=== PATIENT | female | born 1965 | race Caucasian/White ===

== ENCOUNTER → 2021-03-24 | Outpatient (CLI) | payer OTHER ==
[~2021-03-24] MED LIST: AMOX-358 PO
--- NOTE | 2021-03-24 16:58 | Diagnostic Imaging Report ---
INDICATION: Left leg pain. Left leg venous Doppler study was performed in the routine fashion with color flow Doppler and waveform analysis. FINDINGS: The left common femoral vein, superficial femoral vein, popliteal vein and visualized portion of the posterior tibial vein show normal compressibility and venous flow patterns. There is normal augmentation. There is an incidental Deleon's cyst in the left popliteal fossa measuring 4.0 x 3.1 x 2.1 cm. IMPRESSION: No evidence of deep vein thrombosis of the major veins of the left leg. Deleon's cyst in left popliteal fossa. Dictated by: Dictated on workstation # [id number]
== END ==
LOC: RAD 16:11
PROVIDERS: ATTEND Nurse Practitioner Family
DX: M71.22 Synovial cyst of popliteal space [Baker], left knee (principal)

== ENCOUNTER 2021-06-30 16:48 | Emergency (ER) | payer OTHER ==
[~2021-06-30] VITALS: Ht 160 cm; Wt 68.0 kg
--- NOTE | 2021-06-30 20:01 | ED General ---
General Chief Complaint: General Problems/Pain Nursing Triage Note: SENT HERE FOR A CT BUT INSURANCE WOULD NOT PAY SO DR SENT HER HERE. STATES SHE HAS ABNORMAL LABS. Source of Information: Patient Exam Limitations: No Limitations (JUNE DIAZ APRN) History of Present Illness Date Seen by Provider: Jun 30, 2021 Time Seen by Provider: 19:59 Initial Comments To ER from Dr. Garcia swelling in her legs for clinic with reports of about 2 to 3 month. She had outpatient labs done at Dr. Jasso's clinic today showing normal TSH but an abnormal creatinine of 2.1, GFR of 26 and a BUN of 51. Calcium low at 7.6. Albumin low at 2. Hyperlipidemia with total cholesterol of 352. Normal CBC. She states that about 10 days ago before she really began feeling badly she had some systemic symptoms of illness general weakness nausea diarrhea. Her 2 days later was ill with similar symptoms. She has some abdominal pain and was referred here to the emergency room for further work-up. Timing/Duration: 1-2 Days Severity: Moderate Associated Systoms: Denies Symptoms (JUNE DIAZ APRN) Allergies and Home Medications Allergies Coded Allergies: No Known Drug Allergies (Unverified , 01/19/16) Home Medications Amoxicillin/Potassium Clav 1 Each Tablet, 1 EACH PO BID Prescribed by: JUNE DIAZ on 01/19/161930 Cefdinir 300 Mg Capsule, 300 MG PO DAILY Prescribed by: CECIL HSIN on 07/01/21 0844 Patient Home Medication List Home Medication List Reviewed: Yes (JUNE DIAZ APRN) Review of Systems Review of Systems Constitutional: see HPI EENTM: see HPI Respiratory: no symptoms reported Cardiovascular: no symptoms reported Genitourinary: no symptoms reported Musculoskeletal: no symptoms reported Skin: no symptoms reported Psychiatric/Neurological: No Symptoms Reported Hematologic/Lymphatic: No Symptoms Reported (JUNE DIAZ APRN) Past Cotflvh-Gmtklg-Odjffc Hx Patient Social History Tobacco Use?: No Smoking Status: Never a Smoker Substance use?: No Alcohol Use?: No (JUNE DIAZ APRN) Seasonal Allergies Seasonal Allergies: No (JUNE DIAZ APRN) Past Medical History Appendectomy, Hysterectomy Reproductive Disorders: No Sexually Transmitted Disease: No (JUNE DIAZ APRN) Physical Exam Vital Signs Vital Signs - First Documented 06/30/21 17:20 Temp 36.6 Pulse 67 Resp 16 B/P (MAP) 147/80 (102) Pulse Ox 99 O2 Delivery Room Air (LUCA,KATT K DO) Vital Signs Capillary Refill : Less Than 3 Seconds (JUNE DIAZ APRN) Height, Weight, BMI Height: 5'3" Weight: 140lbs. oz. 63.802135sw; 26.00 BMI Method:Stated General Appearance: No Apparent Distress, WD/WN Eyes: Bilateral Eye Normal Inspection, Bilateral Eye PERRL, Bilateral Eye EOMI Neck: Full Range of Motion, Normal Inspection Respiratory: No Accessory Muscle Use, No Respiratory Distress Cardiovascular: Regular Rate, Rhythm, Normal Peripheral Pulses Gastrointestinal: Normal Bowel Sounds, Non Tender, Soft Extremity: Normal Capillary Refill, Normal Inspection Neurologic/Psychiatric: Alert, Oriented x3 Skin: Normal Color, Warm/Dry (JUNE DIAZ APRN) Procedures/Interventions Suture Size: 6-0 (JUNE DIAZ APRN) Progress/Results/Core Measures Suspected Sepsis SIRS Temperature: Pulse: 67 Respiratory Rate: 16 Blood Pressure 147 /80 Mean: 102 (JUNE DIAZ APRN) Results/Orders Vital Signs/I&O 06/30/21 17:20 Temp 36.6 Pulse 67 Resp 16 B/P (MAP) 147/80 (102) Pulse Ox 99 O2 Delivery Room Air (LUCA,KATT K DO) Vital Signs/I&O Capillary Refill : Less Than 3 Seconds (JUNE DIAZ APRN) Blood Pressure Mean: 102 Progress Note : Progress Note 2300--ASSUMED CARE FROM PILAR DIAZ AT END OF SHIFT. PT CURRENTLY HAS NO COMPLAINTS HE HAS SPOKEN WITH DR. GONZALEZ, HOSPITALIST, WHO ADVISED TRANSFER TO FACILITY WITH NEPHROLOGY SERVICES HE HAS CONTACTED [facility] AND [facility]--NO BEDS AVAILABLE [facility] HAS BEEN CONTACTED TO ASSIST WITH BED PLACEMENT 5--CALLED [facility], NO BEDS AVAILABLE COVID-19 TEST HAS BEEN ORDERED ADDITIONAL LAB ORDERED AND EKG ORDERED MARKED DELAY IN OBTAINING LAB RESULTS. PT HAS BEEN GIVEN LASIX AND IV FLUIDS PRIOR TO MY ASSUMING CARE. 0030--VOIDED 325 ML OF VERY STRONG SMELLING URINE. PT UPDATED AT INTERVALS THROUGHOUT THE NIGHT NO COMPLAINTS FROM PATIENT NO DETERIORATION IN PT'S CONDITION DURING ER STAY 0600--CARE TURNED OVER TO DR. KOCH AT SHIFT CHANGE. (KATT SEGOVIA DO) Progress Note : Time: 08:31 Progress Note I assumed care of this patient from Dr. Segovia at 0600. [place] [facility] exhausted transfer possibilities in [place] and [place]. I have discussed the situation with Dr. Nelson (literary writer) Dr. Corbett. Arrangements were made for her to see Dr. Cotton at 1330 this afternoon. Under normal circumstances admission would be preferred. However, in the current Covid pandemic environment, admission is currently not possible at a near regional facility with nephrology services. I discussed further work-up and if she r equested urine eosinophils, random urine sodium, random urine protein, uric acid, and creatinine kinase. The studies will be pending at the time of discharge. The studies will also be after IV fluids and Lasix which may affect the results. Orthostatic blood pressures were normal. Patient received a about 400 mL of an LR bolus prior to discharge. [facility] was updated. O rthostatic blood pressures were normal. (CECIL KOCH MD) ECG Initial ECG Impression Date: Jun 30, 2021 Initial ECG Impression Time: 23:21 Initial ECG Rate: 66 Initial ECG Rhythm: Normal Sinus (KATT SEGOVIA DO) Diagnostic Imaging Diagonstic Imaging: CT Comments NAME: GIULIANA BERNSTEIN [facility] REC#: [id number] PT STATUS: REG ER : 1965 PHYSICIAN: JUNE DIAZ LICENSED PROSTHETIST/ORTHOTIST ADMIT DATE: 06/30/21/ER Draft Date of Exam:06/30/21 CT ABDOMEN/PELVIS WO PROCEDURE: CT abdomen and pelvis without contrast. TECHNIQUE: Multiple contiguous axial images were obtained through the abdomen and pelvis without the use of intravenous contrast. Auto Exposure Controls were utilized during the CT exam to meet ALARA standards for radiation dose reduction. INDICATION: Abdominal pain. COMPARISON: None. FINDINGS: The lung bases demonstrate trace bilateral pleural effusions. There is minimal pericardial fluid without rusty effusion. The heart is normal in size. The liver demonstrates no focal lesion. There is a small amount of ascites in the right upper quadrant and in the pelvis. The spleen appears normal. The pancreas is normal. The adrenal glands are normal. The kidneys demonstrate no hydronephrosis or hydroureter. No renal calculus is seen. The bowel loops are nondistended without obstruction. The appendix is not well seen due to the ascites. No free air is seen. There is mild edema in the subcutaneous fat as well. IMPRESSION: Trace bilateral pleural effusions, small amount of ascites and mild anasarca. Dictated on workstation # [id number] Dict: 06/30/212002 Trans: 06/30/212008 PJE [id number] Interpreted by: JASON BRAND MD Electronically signed by: (JUNE DIAZ APRN) Reviewed: Reviewed by Me (KATT SEGOVIA DO) Diagonstic Imaging: Xray Plain Films/CT/US/NM/MRI: chest Comments NAME: GIULIANA BERNSTEIN [facility] REC#: [id number] PT STATUS: REG ER : 1965 PHYSICIAN: JUNE DIAZ APRN ADMIT DATE: 06/30/21/ER Signed Date of Exam:06/30/21 CHEST 1 VIEW, AP/PA ONLY HISTORY: Abdominal pain. COMPARISON: None. TECHNIQUE: Frontal view of the chest. FINDINGS: Lung volumes are mildly large. There is blunting at the costophrenic angles, which may represent trace pleural effusions. The cardiac silhouette is normal in size. There is no pneumothorax. IMPRESSION: Trace bilateral pleural effusions. Dictated by: Dictated on workstation # [id number] Dict: 06/30/211956 Trans: 07/01/2115 PJE [id number] Interpreted by: JASON BRAND MD Electronically signed by: JASON BRAND MD 07/01/21 0016 (CECIL KOCH MD) Departure Communication (Admissions) 8239-Spoke with Dr Perez at from nephrology. Recommends a protein creatinine ratio in the urine sample. She would recommend admitting, diuresing her and monitoring kidney function. Spoke with Dr. Gonzalez, would like her to go somewhere with nephrology. does not have any nephrology beds, [facility] are on diversion. Will use [facility] to try to find a hospital. (JUNE DIAZ APRN) 0038--CALLED [facility] FOR UPDATE. THERE ARE CURRENTLY NO AVAILABLE BEDS IN THE [place]. I WILL DISCUSS THIS WITH PATIENT AND CALL THEM BACK. 0041--CALLED [facility] BACK, PT AGREEABLE TO TRANSFER OUTSIDE THE [facility] IF NECESSARY. THEY WILL CALL BACK TO UPDATE ON PROGRESS. 226--CALLED [facility] FOR UPDATE. STILL IN PROCESS OF TRYING TO FIND A BED. MAY POSSIBLY HAVE ONE AT [facility] 0406--SPOKE WITH [facility]. THEY WILL CALL [facility] AGAIN. 042--[facility] CALL[facility], SPOKE WITH DR. DYE, HOSPITALIST. ACCEPTS PT FOR ADMIT 0430--DR. DYE HAS CALLED BACK. STATES THAT PT CAN BE SEEN BY NEPROLOGIST OUTPATIENT, AND NOW DECLINES ADMIT. 06--[facility] CALLED BACK AND I INFORMED THEM OF [facility] DECLINING ADMIT. THEY HAVE EXHAUSTED ALL HOSPITALS IN [place] AND [place] AND NO BEDS AVAILABLE. THEY WILL RESTART THE SEARCH IN A COUPLE OF HOURS, AFTER POSSIBLE DISMISSALS OF PATIENTS. (KATT SEGOVIA DO) Impression Primary Impression: Nephrotic syndrome Additional Impressions: Urinary tract infection Qualified Codes: N39.0 - Urinary tract infection, site not specified Acute renal failure Qualified Codes: N17.9 - Acute kidney failure, unspecified Hypoalbuminemia Hypoproteinemia Pleural effusion Disposition: 01 HOME, SELF-CARE Condition: Stable Transfer Transfer Reason: Exceeds level of care (JUNE DIAZ APRN) Departure-Patient Inst. Decision time for Depature: 07:12 (CECIL KOCH MD) Referrals: KEYLA JASSO MD (PCP/Family) Primary Care Physician Patient Instructions: Nephrotic Syndrome Add. Discharge Instructions: Consume a low-sodium diet and drink water as you are thirsty but not excessive amounts. Follow-up with Dr. Cotton at [facility] this afternoon at 1:30. [address] ([address] [place] [address]) [phone] or [phone] Call the office to confirm the time and to provide any demographics they may need. Call with any questions or concerns. Follow-up with your primary care provider soon as possible. Return to the ER if you have worsening symptoms. Complete your antibiotics as prescribed for treatment of urinary tract infection. All discharge instructions reviewed with patient and/or family. Voiced understanding. Scripts Cefdinir (Cefdinir) 300 Mg Capsule 300 MG PO DAILY, #7 CAP 0 Refills Prov: CECIL KOCH MD 07/01/21 Copy Copies To 1: KEYLA JASSO MD, PETER J APRN Jun 30, 2021 20:01 KATT SEGOVIA DO Jun 30, 2021 23:19 CECIL KOCH MD Jul 01, 2021 08:37
--- NOTE | 2021-06-30 20:10 | Diagnostic Imaging Report ---
PROCEDURE: CT abdomen and pelvis without contrast. TECHNIQUE: Multiple contiguous axial images were obtained through the abdomen and pelvis without the use of intravenous contrast. Auto Exposure Controls were utilized during the CT exam to meet ALARA standards for radiation dose reduction. INDICATION: Abdominal pain. COMPARISON: None. FINDINGS: The lung bases demonstrate trace bilateral pleural effusions. There is minimal pericardial fluid without rusty effusion. The heart is normal in size. The liver demonstrates no focal lesion. There is a small amount of ascites in the right upper quadrant and in the pelvis. The spleen appears normal. The pancreas is normal. The adrenal glands are normal. The kidneys demonstrate no hydronephrosis or hydroureter. No renal calculus is seen. The bowel loops are nondistended without obstruction. The appendix is not well seen due to the ascites. No free air is seen. There is mild edema in the subcutaneous fat as well. IMPRESSION: Trace bilateral pleural effusions, small amount of ascites and mild anasarca. Dictated by: Dictated on workstation # [id number]
[2021-06-30 20:21] LABS: BILIRUBIN,URINE NEGATIVE (NEGATIVE); CLARITY,URINE CLOUDY; COLOR,URINE YELLOW; GLUCOSE, URINE (UA) 1+ (NEGATIVE); KETONES,URINE TRACE (NEGATIVE); LEUKOCYTE ESTERASE ,URINE NEGATIVE (NEGATIVE); NITRITE,URINE NEGATIVE (NEGATIVE); PH,URINE 6.5 (5-9); PROTEIN,URINE 3+ (NEGATIVE)
[2021-06-30 20:33] LABS: BACTERIA,URINE LARGE /HPF; HYALINE CASTS, URINE 25-50 /LPF; WBC,URINE 25-50 /HPF
[2021-06-30] MEDS ORDERED: LACTATED RINGERS 1,000 ML IV SCH (22:00)
[2021-06-30] MEDS ORDERED: FUROSEMIDE 40 MG/4 ML INJ (LASIX) IVP ONE (23:00)
[2021-06-30] MEDS ORDERED: cefTRIAXone 1,000 MG in WATER (STERILE) FOR INJECTION 10 ML IV ONE (23:15)
[2021-07-01 00:49] LABS: MAGNESIUM 2.4 MG/DL (1.6-2.4)
[2021-07-01 04:18] LABS: BASOPHILS # (AUTO) 0.1 10^3/uL (0.0-0.1); BASOPHILS % (AUTO) 1 % (0-10); EOSINOPHILS # (AUTO) 0.2 10^3/uL (0.0-0.3); EOSINOPHILS % (AUTO) 2 % (0-10); HEMATOCRIT 35 % (35-52); HEMOGLOBIN 11.6 g/dL (11.5-16.0); LYMPHOCYTES % (AUTO) 51 % (12-44); MEAN CORPUSCULAR HEMOGLOBIN 30 pg (25-34); MEAN CORPUSCULAR HGB CONC 33 g/dL (32-36); MEAN CORPUSCULAR VOLUME 91 fL (80-99); MEAN PLATELET VOLUME 10.8 fL (9.0-12.2); MONOCYTES # (AUTO) 0.7 10^3/uL (0.0-1.0); MONOCYTES % (AUTO) 7 % (0-12); NEUTROPHILS % (AUTO) 40 % (42-75); PLATELET COUNT 327 10^3/uL (130-400); WHITE BLOOD COUNT 9.9 10^3/uL (4.3-11.0)
[2021-07-01 04:19] LABS: ALBUMIN 1.7 GM/DL (3.2-4.5)
[2021-07-01 04:20] LABS: CHLORIDE 108 MMOL/L (98-107); POTASSIUM 4.3 MMOL/L (3.6-5.0); SODIUM 138 MMOL/L (135-145)
[2021-07-01 04:22] LABS: GLUCOSE 102 MG/DL (70-105); TOTAL PROTEIN 4.3 GM/DL (6.4-8.2)
[2021-07-01 04:23] LABS: CARBON DIOXIDE 22 MMOL/L (21-32)
[2021-07-01 04:24] LABS: BILIRUBIN,TOTAL 0.2 MG/DL (0.1-1.0)
[2021-07-01 04:25] LABS: ALKALINE PHOSPHATASE 73 U/L (40-136)
[2021-07-01 04:26] LABS: CREATININE SERUM 1.75 MG/DL (0.60-1.30); GFR ESTIMATED 30
[2021-07-01 04:27] LABS: BUN/CREATININE RATIO 26
[2021-07-01 04:28] LABS: ALANINE AMINOTRANSFERASE 24 U/L (0-55); MAGNESIUM 2.4 MG/DL (1.6-2.4)
[2021-07-01] MEDS ORDERED: LACTATED RINGERS 1,000 ML IV ONE (06:15)
[2021-07-01 08:11] VITALS: BP_SYST 146; BP_SYST 154; BP_SYST 155; BP_DIAS 76; BP_DIAS 82; BP_DIAS 84
[2021-07-01] MEDS ORDERED: CEFD300C3 PO (08:44)
[2021-07-01 09:38] LABS: URIC ACID 4.7 MG/DL (2.6-7.2)
[2021-07-01 09:44] VITALS: BP 170/91
== END 2021-07-01 09:44 | disposition home or self-care (01) ==
LOC: EDUNIT# 16:48 → ER 16:51 → CSD 19:05 → UNDOADMIN 19:05 → ER 07-01 09:44
DX: N04.9 Nephrotic syndrome with unspecified morphologic changes (principal); N39.0 Urinary tract infection, site not specified; N17.9 Acute kidney failure, unspecified; E88.09 Other disorders of plasma-protein metabolism, not elsewhere classified; E77.8 Other disorders of glycoprotein metabolism; J90 Pleural effusion, not elsewhere classified; Z20.822 Contact with and (suspected) exposure to COVID-19
CPT/HCPCS: 36415; 71045; 74176; 80053; 81000; 82550; 82570; 83735; 83880; 84156; 84300; 84484; 84550; 85025; 87077; 87088; 87186; 87636; 93005; 93041

== ENCOUNTER 2021-11-27 08:42 | Emergency (ER) | payer OTHER ==
[~2021-11-27] VITALS: Ht 160 cm; Wt 55.0 kg
[~2021-11-27 08:42] MED LIST changes: +CEFD300C3 PO
[2021-11-27] MEDS ORDERED: ONDANSETRON 4 MG/2 ML (SDV) Z0FRAN IVP ONE (09:15)
[2021-11-27] MEDS ORDERED: NS IV 1000 ML 1,000 ML IV SCH (09:15)
[2021-11-27] MEDS ORDERED: morphine INJ 10 MG/ML 1ML (SYR OR VIAL) IVP STA (09:15)
[2021-11-27 09:21] LABS: BASOPHILS # (AUTO) 0.1 10^3/uL (0.0-0.1); BASOPHILS % (AUTO) 1 % (0-10); EOSINOPHILS % (AUTO) 0 % (0-10); HEMATOCRIT 46 % (35-52); HEMOGLOBIN 15.2 g/dL (11.5-16.0); LYMPHOCYTES # (AUTO) 5.1 10^3/uL (1.0-4.0); LYMPHOCYTES % (AUTO) 35 % (12-44); MEAN CORPUSCULAR HEMOGLOBIN 32 pg (25-34); MEAN CORPUSCULAR HGB CONC 33 g/dL (32-36); MEAN CORPUSCULAR VOLUME 99 fL (80-99); MEAN PLATELET VOLUME 10.3 fL (9.0-12.2); MONOCYTES # (AUTO) 1.1 10^3/uL (0.0-1.0); MONOCYTES % (AUTO) 8 % (0-12); NEUTROPHILS # (AUTO) 8.2 10^3/uL (1.8-7.8); NEUTROPHILS % (AUTO) 56 % (42-75); PLATELET COUNT 264 10^3/uL (130-400); WHITE BLOOD COUNT 14.6 10^3/uL (4.3-11.0)
[2021-11-27 09:27] LABS: ALBUMIN 4.5 GM/DL (3.2-4.5); POTASSIUM 3.4 MMOL/L (3.6-5.0)
[2021-11-27 09:28] LABS: CALCIUM 9.8 MG/DL (8.5-10.1)
[2021-11-27 09:29] LABS: TOTAL PROTEIN 7.2 GM/DL (6.4-8.2)
[2021-11-27 09:31] LABS: BILIRUBIN,TOTAL 0.5 MG/DL (0.1-1.0)
[2021-11-27 09:33] LABS: CREATININE SERUM 0.98 MG/DL (0.60-1.30)
--- NOTE | 2021-11-27 09:37 | ED Back Pain ---
General Chief Complaint: Back Problems Stated Complaint: R SIDED BACK PAIN Nursing Triage Note: ARRIVED VIA AMB TO ROOM 01 WITH COMPLAINTS OF SUDDEN ONSET OF RIGHT LOWER BACK PAIN AFTER WORKING OUT. STATES IT MIGHT BE HER KIDNEYS DUE TO HAVING PROBLEMS AFTER THE MODERNA SHOT. Source of Information: Patient Exam Limitations: Other (communication limited by patient's pain level) (WILIAM PARRY STUDENT) History of Present Illness Date Seen by Provider: Nov 27, 2021 Time Seen by Provider: 09:30 Initial Comments Pt is a 56yoF with ho of CLAUDINE who presents with her with CC of severe right flank pain that began suddenly this morning ~0745. The pain has caused her to vomit multiple times. She has had no recent illnesses, denies dysuria, hematuria, chest pain and shortness of breath. The pain is sharp 10/10 and does not radiate. She is very active and went to her morning workout for an hour, came home and was walking around the house to wake up her when the pain began. She did not fall, overly exert herself or try any new physical activi ties, medications or foods. She has taken her morning doses of prescribed medication this morning. She denies history of heart disease or blood clots. Further history is limited by patient's inability to communicate due to pain. She is vomiting and pacing around the room. Timing/Duration: 1-3 Hours Severity: Severe Associated Symptoms: denies symptoms (WILIAM PARRY STUDENT) Allergies and Home Medications Allergies Coded Allergies: No Known Drug Allergies (Unverified , 01/19/16) Patient Home Medication List Home Medication List Reviewed: Yes (ANTELMO LOZANO MD) Amoxicillin/Potassium Clav (Augmentin 875-125 Tablet) 1 Each Tablet, 1 EACH PO BID Prescribed by: JUNE DIAZ on 01/19/16 193 Cefdinir (Cefdinir) 300 Mg Capsule, 300 MG PO DAILY Prescribed by: CECIL SHIN on 07/01/21 0844 Nitrofurantoin Monohyd/M-Cryst (Macrobid 100 mg Capsule) 100 Mg Capsule, 1 TAB PO BID Prescribed by: ANTELMO LOZANO on 11/27/21 1526 Ondansetron (Ondansetron Odt) 4 Mg Tab.rapdis, 4 MG PO Q8H PRN for nausea Prescribed by: ANTELMO LOZANO on 11/27/21 1318 Oxycodone HCl/Acetaminophen (Percocet 5-325 mg Tablet) 1 Each Tablet, 1 TAB PO Q6H PRN for pain Prescribed by: ANTELMO LOZANO on 11/27/21 131 Tamsulosin HCl (Flomax) 0.4 Mg Cap, 0.4 MG PO HS Prescribed by: ANTELMO LOZANO on 11/27/21 1318 Review of Systems Constitutional: No chills, No diaphoresis, No fever EENTM: No hearing loss, No nose congestion, No throat pain Respiratory: No cough, No short of breath, No wheezing Cardiovascular: No chest pain, No edema Gastrointestinal: No constipation, No diarrhea, No hematemesis, No melena; nausea, vomiting, other (right flank pain) Genitourinary: No dysuria, No frequency, No hematuria : No Musculoskeletal: back pain; No muscle cramps, No neck pain Skin: no symptoms reported Psychiatric/Neurological: No Symptoms Reported (WILIAM PARRY MED STUDENT) Past Ptygxbj-Ouqhiw-Nooxfr Hx Patient Social History Tobacco Use?: No Substance use?: No (WILIAM PARRY Enish STUDENT) Immunizations Up To Date Second COVID19 Vaccination Brett: 02/24 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 oz. 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) Progress/Results/Core Measures Results/Orders Lab Results Laboratory Tests Test 11/27/21 09:07 11/27/21 14:16 Range/Units White Blood Count 14.6 H 4.3-11.0 10^3/uL Red Blood Count 4.70 3.80-5.11 10^6/uL Hemoglobin 15.2 11.5-16.0 g/dL Hematocrit 46 35-52 % Mean Corpuscular Volume 99 80-99 fL Mean Corpuscular Hemoglobin 32 25-34 pg Mean Corpuscular Hemoglobin Concent 33 32-36 g/dL Red Cell Distribution Width 12.6 10.0-14.5 % Platelet Count 264 130-400 10^3/uL Mean Platelet Volume 10.3 9.0-12.2 fL Immature Granulocyte % (Auto) 1 % Neutrophils (%) (Auto) 56 42-75 % Lymphocytes (%) (Auto) 35 12-44 % Monocytes (%) (Auto) 8 0-12 % Eosinophils (%) (Auto) 0 0-10 % Basophils (%) (Auto) 1 0-10 % Neutrophils # (Auto) 8.2 H 1.8-7.8 10^3/uL Lymphocytes # (Auto) 5.1 H 1.0-4.0 10^3/uL Monocytes # (Auto) 1.1 H 0.0-1.0 10^3/uL Eosinophils # (Auto) 0.0 0.0-0.3 10^3/uL Basophils # (Auto) 0.1 0.0-0.1 10^3/uL Immature Granulocyte # (Auto) 0.1 0.0-0.1 10^3/uL Neutrophils % (Manual) 48 % Lymphocytes % (Manual) 14 % Monocytes % (Manual) 7 % Eosinophils % (Manual) 1 % Basophils % (Manual) 1 % Reactive Lymphocytes 29 % Blood Morphology Comment NORMAL Sodium Level 139 135-145 MMOL/L Potassium Level 3.4 L 3.6-5.0 MMOL/L Chloride Level 101 98-107 MMOL/L Carbon Dioxide Level 25 21-32 MMOL/L Anion Gap 13 5-14 MMOL/L Blood Urea Nitrogen 25 H 7-18 MG/DL Creatinine 0.98 0.60-1.30 MG/DL Estimat Glomerular Filtration Rate 67 BUN/Creatinine Ratio 26 Glucose Level 170 H 70-105 MG/DL Calcium Level 9.8 8.5-10.1 MG/DL Corrected Calcium 9.4 8.5-10.1 MG/DL Total Bilirubin 0.5 0.1-1.0 MG/DL Aspartate Amino Transf (AST/SGOT) 24 5-34 U/L Alanine Aminotransferase (ALT/SGPT) 33 0-55 U/L Alkaline Phosphatase 43 40-136 U/L Total Protein 7.2 6.4-8.2 GM/DL Albumin 4.5 3.2-4.5 GM/DL Urine Color YELLOW Urine Clarity CLOUDY Urine pH 6.0 5-9 Urine Specific [place] 1.020 1.016-1.022 Urine Protein 1+ H NEGATIVE Urine Glucose (UA) NEGATIVE NEGATIVE Urine Ketones 1+ H NEGATIVE Urine Nitrite NEGATIVE NEGATIVE Urine Bilirubin NEGATIVE NEGATIVE Urine Urobilinogen 1.0 < = 1.0 MG/DL Urine Leukocyte Esterase 2+ H NEGATIVE Urine RBC (Auto) 3+ H NEGATIVE Urine RBC 25-50 H /HPF Urine WBC 10-25 H /HPF Urine Squamous Epithelial Cells RARE /HPF Urine Crystals NONE /LPF Urine Bacteria MODERATE H /HPF Urine Casts NONE /LPF Urine Mucus NEGATIVE /LPF Urine Yeast MODERATE H /HPF Urine Culture Indicated YES (ANTELMO LOZANO MD) My Orders Orders - ANTELMO LOZANO MD Ed Iv/Invasive Line Start (11/27/21 09:15) Cbc With Automated Diff (11/27/21 09:15) Comprehensive Metabolic Panel (11/27/21 09:15) Ua Culture If Indicated (11/27/21 09:15) Morphine Injection (Morphine Injection (11/27/21 09:15) Ondansetron Injection (Zofran Injectio (11/27/21 09:15) Ns Iv 1000 Ml (Sodium Chloride 0.9%) (11/27/21 09:15) Manual Differential (11/27/21 09:07) Hydromorphone Injection (Dilaudid Inject (11/27/21 10:15) Abdomen, Flat & Upright/Decub (11/27/21 10:13) Ct Abd/Pelvis Wo(Kidney Stone) (11/27/21 10:13) Lactated Ringers (Lr 1000 Ml Iv Solution (11/27/21 12:53) Tamsulosin Capsule (Flomax Capsule) (11/27/21 12:53) Bladder Scan (11/27/21 14:31) Urine Culture (11/27/21 14:16) Oxycodone/Apap 5/325mg Tablet (Percocet (11/27/21 15:30) (ANTELMO LOZANO MD) Medications Given in ED (ANTELMO LOZANO MD) Vital Signs/I&O 11/27/21 11/27/21 08:45 15:43 Temp 36.3 Pulse 83 77 Resp 16 16 B/P (MAP) 115/62 Pulse Ox 96 98 O2 Delivery Room Air Room Air (ANTELMO LOZANO MD) Progress Progress Note #1: Time: 15:01 Progress Note Notified by JUAN Donohue the patient finally urinated. She has been given 1/2 L of LR; has been drinking lots of water. She was able to go "a little". We are going to go ahead and bladder scan her and make sure she is not in retention. Tech reports her urine was "really dark tho"; likely a little behind on fluids. Is adamant about not having IVF due to the sodium load and her chronic kidney disease - stating she is supposed to be restricted to only 2g of sodium a day. She has, again, however, been drinking water. She has a 2mm stone at the right UVJ. I have prescriptions for pain medications, nausea and flomax. I have also given her referral to Dr Bermudez. Progress Note #2: Time: 15:28 Progress Note Patient voided. Has a UTI. Will start her on macrobid. return precautions reviewed again - if ANY fever, return to the ER. (ANTELMO LOZANO MD) Diagnostic Imaging Diagonstic Imaging: Xray Comments [facility]. [place], [place] NAME: GIULIANA BERNSTEIN [facility] REC#: [id number] PT STATUS: REG ER : 1965 PHYSICIAN: ANTELMO LOZANO MD ADMIT DATE: 11/27/21/ER Draft Date of Exam:11/27/21 ABDOMEN, FLAT & UPRIGHT/DECUB INDICATION: Right flank pain. TIME OF EXAM: 10:40 AM The bowel gas pattern is nonobstructed. There is moderate stool in the right colon. No free air is identified. No pathologic calcifications are seen. IMPRESSION: Moderate stool. The study is otherwise unremarkable. Dictated on workstation # [id number] Dict: 11/27/21 1038 Trans: 11/27/21 1045 [facility] [id number] Interpreted by: MEHNAZ JERRY MD Electronically signed by: [facility] [place] NAME: GIULIANA BERNSTEIN [facility] REC#: [id number] PT STATUS: REG ER : 1965 PHYSICIAN: ANTELMO LOZANO MD ADMIT DATE: 11/27/21/ER Signed Date of Exam:11/27/21 CT ABD/PELVIS WO(KIDNEY STONE) PROCEDURE: CT urinary tract, rule out kidney stone. TECHNIQUE: Multiple contiguous axial images were obtained through the abdomen and pelvis without the use of intravenous contrast. Auto Exposure Controls were utilized during the CT exam to meet ALARA standards for radiation dose reduction. INDICATION: Flank pain. COMPARISON: 06/30/2021. FINDINGS: The lung bases are clear. The liver is normal in size and without focal lesions. Gallbladder is unremarkable. Spleen is normal. Pancreas and adrenal glands are unremarkable. The left kidney is normal in appearance. There is left hydronephrosis and hydroureter secondary to a 2 mm stone at the right UVJ. Bladder is normal. The aorta is nonaneurysmal. Bowel gas pattern is nonspecific although there is a moderate amount of retained fecal material, possibly reflecting some degree of constipation. There is no pelvic mass, adenopathy or free fluid. There are degenerative changes in the spine. IMPRESSION: Mild right hydronephrosis and hydroureter secondary to a 2 mm stone at the right UVJ. Moderate amount of retained fecal material, likely reflecting some degree of constipation. Otherwise, unremarkable noncontrast CT abdomen and pelvis. Dictated by: Dictated on workstation # [id number] Dict: 11/27/21 1038 Trans: 11/27/21 1211 [facility] [id number] Interpreted by: VIKAS VELAZCO MD Electronically signed by: VIKAS VELAZCO MD 11/27/21 1211 (ANTELMO LOZANO MD) Departure Impression Primary Impression: Right nephrolithiasis Additional Impressions: Chronic kidney disease Qualified Codes: N18.9 - Chronic kidney disease, unspecified Urinary tract infection Qualified Codes: N30.01 - Acute cystitis with hematuria Disposition: HOME, SELF-CARE Condition: Stable Departure-Patient Inst. Decision time for Depature: 13:13 (ANTELMO LOZANO MD) Referrals: NO,LOCAL PHYSICIAN (PCP) Primary Care Physician ABDULAZIZ BERMUDEZ MD Patient Instructions: Kidney Stone, Adult ED Add. Discharge Instructions: Drink plenty of water to stay well hydrated. You want your urine to be clear. I have prescribed you nausea and pain medications - you can take the pain medications every 6 hours for pain. Keep in mind narcotic pain medications can cause problems with addiction. Only take them as needed. Nausea medications every 8 hours. Return to the ER if your pain worsens and your pain medications are not working, or if you have fever or persistent vomiting. Strain your urine until you pass your stone. Take the flomax nightly to help pass the stone as well. It is safe in kidney disease. Follow up with your primary care doctor and branch office manager. I have also given you contact information for our Urologist, Dr Bermudez. Scripts Nitrofurantoin Monohyd/M-Cryst (Macrobid 100 mg Capsule) 100 Mg Capsule 1 TAB PO BID for 10 Days, #20 CAP Prov: ANTELMO LOZANO MD 11/27/21 Tamsulosin HCl (Flomax) 0.4 Mg Cap 0.4 MG PO HS, #14 CAP Prov: ANTELMO LOZANO MD 11/27/21 Ondansetron (Ondansetron Odt) 4 Mg Tab.rapdis 4 MG PO Q8H PRN for nausea, #15 TAB Prov: ANTELMO LOZANO MD 11/27/21 Oxycodone HCl/Acetaminophen (Percocet 5-325 mg Tablet) 1 Each Tablet 1 TAB PO Q6H PRN for pain MDD 6 TABS, #15 TAB Prov: ANTELMO LOZANO MD 11/27/21 Verification and Attestation of Medical Student E/M Service A medical student performed and documented this service in my presence. I reviewed and verified all information documented by the medical student and made modifications to such information, when appropriate. I personally performed the physical exam and medical decision making. Antelmo Lozano, Nov 29, 2021,06:17 (ANTELMO LOZANO MD) WILIAM PARRY MED STUDENT Nov 27, 2021 09:37 ANTELMO LOZANO MD Nov 27, 2021 13:17
[2021-11-27 10:09] LABS: BASOPHILS % (MANUAL) 1 %; EOSINOPHILS % (MANUAL) 1 %; LYMPHOCYTES % (MANUAL) 14 %; MONOCYTES % (MANUAL) 7 %; NEUTROPHILS % (MANUAL) 48 %; RBC MORPH NORMAL; REACTIVE LYMPHOCYTES 29 %
[2021-11-27] MEDS ORDERED: HYDROmorphone 2 MG/ML VIAL (DILAUDID) IV ONE (10:15)
--- NOTE | 2021-11-27 10:45 | Diagnostic Imaging Report ---
INDICATION: Right flank pain. TIME OF EXAM: 10:40 AM The bowel gas pattern is nonobstructed. There is moderate stool in the right colon. No free air is identified. No pathologic calcifications are seen. IMPRESSION: Moderate stool. The study is otherwise unremarkable. Dictated by: Dictated on workstation # [id number]
--- NOTE | 2021-11-27 10:45 | Diagnostic Imaging Report ---
PROCEDURE: CT urinary tract, rule out kidney stone. TECHNIQUE: Multiple contiguous axial images were obtained through the abdomen and pelvis without the use of intravenous contrast. Auto Exposure Controls were utilized during the CT exam to meet ALARA standards for radiation dose reduction. INDICATION: Flank pain. COMPARISON: 06/30/2021. FINDINGS: The lung bases are clear. The liver is normal in size and without focal lesions. Gallbladder is unremarkable. Spleen is normal. Pancreas and adrenal glands are unremarkable. The left kidney is normal in appearance. There is left hydronephrosis and hydroureter secondary to a 2 mm stone at the right UVJ. Bladder is normal. The aorta is nonaneurysmal. Bowel gas pattern is nonspecific although there is a moderate amount of retained fecal material, possibly reflecting some degree of constipation. There is no pelvic mass, adenopathy or free fluid. There are degenerative changes in the spine. IMPRESSION: Mild right hydronephrosis and hydroureter secondary to a 2 mm stone at the right UVJ. Moderate amount of retained fecal material, likely reflecting some degree of constipation. Otherwise, unremarkable noncontrast CT abdomen and pelvis. Dictated by: Dictated on workstation # [id number]
[2021-11-27] MEDS ORDERED: TAMSULOSIN 0.4 MG (FLOMAX) CAP PO STA (12:53)
[2021-11-27] MEDS ORDERED: LACTATED RINGERS 500 ML IV STA (12:53)
[2021-11-27] MEDS ORDERED: TMSL.4C PO (13:18)
[2021-11-27] MEDS ORDERED: ONDA4TAB11 PO (13:18)
[2021-11-27] MEDS ORDERED: OXYC1TAB87 PO (13:18)
[2021-11-27 14:49] LABS: BILIRUBIN,URINE NEGATIVE (NEGATIVE); CLARITY,URINE CLOUDY; COLOR,URINE YELLOW; GLUCOSE, URINE (UA) NEGATIVE (NEGATIVE); KETONES,URINE 1+ (NEGATIVE); LEUKOCYTE ESTERASE ,URINE 2+ (NEGATIVE); NITRITE,URINE NEGATIVE (NEGATIVE); PROTEIN,URINE 1+ (NEGATIVE)
[2021-11-27 14:57] LABS: BACTERIA,URINE MODERATE /HPF; RBC,URINE 25-50 /HPF
[2021-11-27 14:58] LABS: SQUAMOUS EPITHELIAL CELL,UR RARE /HPF; YEAST,URINE MODERATE /HPF
[2021-11-27] MEDS ORDERED: NITR-65 PO (15:26)
[2021-11-27] MEDS ORDERED: oxyCODONE/APAP 5/325MG (PERCOCET 5) TABLET PO ONE (15:30)
[2021-11-27 15:43] VITALS: BP 115/62
== END 2021-11-27 15:43 | disposition home or self-care (01) ==
LOC: EDUNIT# 08:42 → ER 08:43
DX: N13.2 Hydronephrosis with renal and ureteral calculous obstruction (principal); N18.9 Chronic kidney disease, unspecified; N39.0 Urinary tract infection, site not specified
CPT/HCPCS: 36415; 74019; 74176; 80053; 81000; 85007; 85027; 87077; 87088

== ENCOUNTER → 2022-05-05 | Outpatient (RCR) | payer OTHER ==
[~2022-05-05] MED LIST changes: +NITR-65 PO; +ONDA4TAB11 PO; +OXYC1TAB87 PO; +TMSL.4C PO; +cefTRIAXone 1 GM PRE-MIX 50 ML IV ONE
[2022-05-05 14:28] VITALS: BP 119/60
== END ==
LOC: SDC 13:07 → EDSTATUS 13:11
PROVIDERS: ATTEND Nurse Practitioner Family
DX: N39.0 Urinary tract infection, site not specified (principal)
CPT/HCPCS: 36569; 76937; 96365; C1751

== ENCOUNTER 2022-05-14 09:20 | Outpatient (RCR) | payer OTHER ==
[2022-05-06 10:43] VITALS: BP 113/68
[2022-05-07 09:00] VITALS: BP 104/70
[2022-05-07] MEDS: cefTRIAXone 1 GM PRE-MIX 50 ML IV SCH (09:05)
[2022-05-08 09:00] VITALS: BP 123/76
[2022-05-08] MEDS: cefTRIAXone 1 GM PRE-MIX 50 ML IV SCH (09:05)
[2022-05-09 09:00] VITALS: BP 120/66
[2022-05-09] MEDS: cefTRIAXone 1 GM PRE-MIX 50 ML IV SCH (09:05)
[2022-05-10] MEDS: cefTRIAXone 1 GM PRE-MIX 50 ML IV SCH (09:17)
[2022-05-10 09:50] VITALS: BP 109/68
[2022-05-11] MEDS: cefTRIAXone 1 GM PRE-MIX 50 ML IV SCH (09:04)
[2022-05-11 09:12] VITALS: BP 121/76
[2022-05-12] MEDS: cefTRIAXone 1 GM PRE-MIX 50 ML IV SCH (09:18)
[2022-05-12 09:53] LABS: ALBUMIN 2.2 GM/DL (3.2-4.5); BILIRUBIN,TOTAL 0.2 MG/DL (0.1-1.0); CALCIUM 8.4 MG/DL (8.5-10.1); CREATININE SERUM 0.6 MG/DL (0.60-1.30); POTASSIUM 4.5 MMOL/L (3.6-5.0); TOTAL PROTEIN 4.6 GM/DL (6.4-8.2)
[2022-05-12 10:00] VITALS: BP 120/74
[2022-05-13] MEDS: cefTRIAXone 1 GM PRE-MIX 50 ML IV SCH (09:30)
[2022-05-13 09:36] VITALS: BP 118/77
[2022-05-13 09:50] VITALS: BP 118/77
[2022-05-14] MEDS: cefTRIAXone 1 GM PRE-MIX 50 ML IV SCH (09:27)
[2022-05-14 09:43] VITALS: BP 120/75
== END 2022-05-14 10:05 | disposition home or self-care (01) ==
LOC: SDC 09:20
PROVIDERS: ATTEND Nurse Practitioner Family
DX: N39.0 Urinary tract infection, site not specified (principal)
CPT/HCPCS: 36415; 80053; 96365; 99211